=== PATIENT | female | born 1975 | race Caucasian/White ===

== ENCOUNTER 2019-06-12 12:35 | Emergency (ER) | payer OTHER ==
--- OUTSIDE RECORDS SUMMARY | 2019-06-12 12:36 | XMS REPORT ---
:1975 Author Organization [facility] t Address [address] [place] [address] Dr. Maguire [address] [place] [id number] Care Team Providers Name Role Phone Unavailable Unavailable Unavailable Problems This patient has no known problems. Allergies, Adverse Reactions, Alerts This patient has no known allergies or adverse reactions. Medications This patient has no known medications.
--- NOTE | 2019-06-12 13:39 | RAD REPORT ---
EXAM DESCRIPTION: RAD - Foot Right 3 View - 06/12/2019 1:32 pm CLINICAL HISTORY: Pain;Smash injury, blunt force trauma 2 days earlier COMPARISON: No comparisons FINDINGS: An oblique fracture is present through the midshaft fourth proximal phalanx. No significan t distraction or angulation deformity. Two punctate densities are present in the plantar surface soft tissues medial to the fifth proximal phalanx. These are distant from the fracture. These may be skin contaminant. No other fracture changes seen. No other acute bone or joint finding. No air in the soft tissues. IMPRESSION: Nondisplaced, nonangulated fracture involving the right fourth proximal phalanx.
--- NOTE | 2019-06-12 14:18 | EDPHYS ---
Physician Documentation [facility] Name: Zuleika Ho Age: 43 yrs Sex: Female : 1975 Arrival Date: 06/12/2019 Time: 12:37 Bed 23 Private MD: ED Physician Kirby Mann HPI: 06/11 14:19 This 43 yrs old Female presents to ER via Ambulatory with complaints of Foot jr8 Injury, Foot Pain. 14:19 The patient presents with decreased range of motion, pain, swelling, tenderness. The jr8 complaints affect the dorsum of right foot. Context: The problem was sustained at home, resulted from a direct blow, from a heavy object. Onset: The symptoms/episode began/occurred acutely, 2 day(s) ago. Modifying factors: The symptoms are alleviated by nothing. the symptoms are aggravated by movement, weight bearing. Associated signs and symptoms: The patient has no apparent associated signs or symptoms. Severity of symptoms: At their worst the symptoms were moderate, in the emergency department the symptoms are unchanged. The patient has not experienced similar symptoms in the past. The patient has not recently seen a physician. Patient stated that 2 days ago hit right 4th digit on side board and accidently again on paddle board. Stated that she has had swelling and pain with limited ROM since incident. Could not take the pain any longer . 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 - Social history:: Smoking status: . ROS: 14:19 Eyes: Negative for injury, pain, redness, and discharge, ENT: Negative for injury, jr8 pain, and discharge, Neck: Negative for injury, pain, and swelling, Cardiovascular: Negative for chest pain, palpitations, and edema, Respiratory: Negative for shortness of breath, cough, wheezing, and pleuritic chest pain, Abdomen/GI: Negative for abdominal pain, nausea, vomiting, diarrhea, and constipation, Back: Negative for injury and pain, Skin: Negative for injury, rash, and discoloration, Neuro: Negative for headache, weakness, numbness, tingling, and seizure. 14:19 MS/extremity: Positive for decreased range of motion, pain, swelling, tenderness, of the dorsum of right foot. Exam: 14:19 Constitutional: This is a well developed, well nourished patient who is awake, alert, jr8 and in no acute distress. Cardiovascular: Regular rate and rhythm with a normal S1 and S2. No gallops, murmurs, or rubs. Normal PMI, no JVD. No pulse deficits. Respiratory: Lungs have equal breath sounds bilaterally, clear to auscultation and percussion. No rales, rhonchi or wheezes noted. No increased work of breathing, no retractions or nasal flaring. Skin: Warm, dry with normal turgor. Normal color with no rashes, no lesions, and no evidence of cellulitis. Neuro: Awake and alert, GCS 15, oriented to person, place, time, and situation. Cranial nerves II-XII grossly intact. Motor strength 5/5 in all extremities. Sensory grossly intact. Cerebellar exam normal. Normal gait. 14:19 Musculoskeletal/extremity: Extremities: grossly normal except: noted in the right foot: Patient has swelling to dorsum of foot with bruising. Pain to 4th digit, ROM: limited active range of motion, limited passive range of motion, limited active range of motion due to pain, limited passive range of motion due to pain, Circulation is intact in all extremities. Sensation intact. Vital Signs: 12:51 BP 109 / 72; Pulse 87; Resp 16; Temp 98.0; Pulse Ox 99% on R/A; Weight 54.43 kg; Height iw 5 ft. 3 in. (160.02 cm); Pain 8/10; 14:12 BP 111 / 69; Pulse 82; Resp 16 S; Pulse Ox 100% on R/A; ca1 12:51 Body Mass Index 21.26 (54.43 kg, 160.02 cm) iw Procedures: 14:16 Splinting: Splint applied to right foot using orthopedic shoe. applied by nurse. jr8 Examined by me, post splint application: neurovascular intact, 2+ distal pulses palpable, brisk capillary refill noted, Patient tolerated well. MDM: 14:03 Patient medically screened. jr8 14:16 Data reviewed: vital signs, nurses notes, radiologic studies, plain films. Data jr8 interpreted: Pulse oximetry: on room air is 100 %. Interpretation: normal. Counseling: I had a detailed discussion with the patient and/or guardian regarding: the historical points, exam findings, and any diagnostic results supporting the discharge/admit diagnosis, radiology results, the need for outpatient follow up, a orthopedic surgeon, to return to the emergency department if symptoms worsen or persist or if there are any questions or concerns that arise at home. 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 Low likelihood of abuse. Safe to prescribe jr8 Tylenol #3. 06/11 12:54 Order name: Foot Right 3 View XRAY; Complete Time: 14:06 iw 06/11 14:16 Order name: Orthopedic shoe; Complete Time: 14:23 jr8 06/11 14:23 Order name: Crutch Training; Complete Time: 14:23 ca1 Administered Medications: No medications were administered Disposition: 15:56 Co-signature as Attending Physician, Kirby Mann MD I agree with the assessment and kdr plan of care. Disposition: 06/12/19 14:17 Discharged to Home. Impression: Displaced fracture of proximal phalanx of right lesser toe(s). - Condition is Stable. - Discharge Instructions: Toe Fracture. - Prescriptions for Tylenol- Codeine #3 300-30 mg Oral Tablet - take 2 tablets by ORAL route every 6 hours As needed; 20 tablet. - Medication Reconciliation Form, Thank You Letter, Antibiotic Education, Prescription Opioid Use form. - Follow up: Sharif Neri DPM; When: 1 - 2 days; Reason: Recheck today's complaints, Continuance of care, Re-evaluation by your physician. - Problem is new. - Symptoms have improved. Signatures: Dispatcher [employer] EDMS Kirby Mann MD MD kdr Elena Brandon RN RN iw Roszak, Josh, PA PA jr8 Sara Rodriguez RN RN ca1 Corrections: (The following items were deleted from the chart) 14:28 14:17 06/12/2019 14:17 Discharged to Home. Impression: Displaced fracture of proximal ca1 phalanx of right lesser toe(s). Condition is Stable. Forms are Medication Reconciliation Form, Thank You Letter, Antibiotic Education, Prescription Opioid Use. Follow up: Dr. Sharif Selbst; When: 1 - 2 days; Reason: Recheck today's complaints, Continuance of care, Re-evaluation by your physician. Problem is new. Symptoms have improved. jr8
--- NOTE | 2019-06-12 14:18 | ER ---
Nurse's Notes [facility] Name: Zuleika Ho Age: 43 yrs Sex: Female : 1975 Arrival Date: 06/12/2019 Time: 12:37 Bed 23 Private MD: Diagnosis: Displaced fracture of proximal phalanx of right lesser toe(s) Presentation: 06/11 12:51 Chief complaint: Patient states: table fell on right foot, and reinjured it X 2 days iw ago, has pain through toes and top of foot. Coronavirus screen: Proceed with normal triage. Patient denies a cough. Patient denies shortness of breath or difficulty breathing. Patient denies measured and/or subjective temperature greater than 100.4F prior to today's visit. Patient denies travel on a cruise ship or to a country the [facility] currently lists as an affected area. Patient denies contact with known and/or suspected case of COVID-19. Ebola Screen: Patient negative for fever greater than or equal to 101.5 degrees Fahrenheit, and additional compatible Ebola Virus Disease symptoms Patient denies exposure to infectious person. Patient denies travel to an Ebola-affected area in the 21 days before illness onset. No symptoms or risks identified at this time. Initial Sepsis Screen: Does the patient meet any 2 criteria? No. Patient's initial sepsis screen is negative. Does the patient have a suspected source of infection? No. Patient's initial sepsis screen is negative. Risk Assessment: Do you want to hurt yourself or someone else? Patient reports no desire to harm self or others. Onset of symptoms was June 10, 2019. 12:51 Method Of Arrival: Ambulatory iw 12:51 Acuity: JORGE LUIS 4 iw Triage Assessment: 14:23 Injury Description:. 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 - Social history:: Smoking status: . Screenin:11 Abuse screen: Denies threats or abuse. Denies injuries from another. Nutritional ca1 screening: No deficits noted. Tuberculosis screening: No symptoms or risk factors identified. Fall Risk Fall in past 12 months (25 points). Assessment: 14:11 General: Appears in no apparent distress. comfortable, Behavior is calm, cooperative, ca1 appropriate for age. Pain: Complains of pain in right foot. Neuro: Level of Consciousness is awake, alert, obeys commands, Oriented to person, place, time, situation. Derm: Skin is intact, is healthy with good turgor, Skin is pink, warm \T\ dry. Musculoskeletal: Circulation, motion, and sensation intact. Capillary refill < 3 seconds, Range of motion: intact in all extremities. Vital Signs: 12:51 BP 109 / 72; Pulse 87; Resp 16; Temp 98.0; Pulse Ox 99% on R/A; Weight 54.43 kg; Height iw 5 ft. 3 in. (160.02 cm); Pain 8/10; 14:12 BP 111 / 69; Pulse 82; Resp 16 S; Pulse Ox 100% on R/A; ca1 12:51 Body Mass Index 21.26 (54.43 kg, 160.02 cm) iw ED Course: 12:37 Patient arrived in ED. ag5 12:53 Triage completed. iw 13:24 Foot Right 3 View XRAY In Process Unspecified. EDMS 14:03 Lonnie Hammer PA is PHCP. jr8 14:03 Kirby Mnan MD is Attending Physician. jr8 14:11 Sara Rodriguez, ALYX is Primary Nurse. ca1 14:11 Patient has correct armband on for positive identification. Bed in low position. Call ca1 light in reach. Side rails up X 1. Pulse ox on. NIBP on. 14:11 Arm band placed on. ca1 14:17 Sharif Neri DPM is Referral Physician. jr8 14:23 No provider procedures requiring assistance completed. Patient did not have IV access ca1 during this emergency room visit. Crutch training done. Ortho shoe applied to right foot. Administered Medications: No medications were administered Outcome: 14:17 Discharge ordered by . jr8 14:24 Discharged to home via wheelchair, with crutches. ca1 14:24 Condition: stable 14:24 Discharge instructions given to patient, Instructed on discharge instructions, follow up and referral plans. no drinking with medication, no driving heavy equipment, medication usage, crutch walking, Demonstrated understanding of instructions, follow-up care, medications, crutch walking, Prescriptions given X 1. 14:28 Patient left the ED. ca1 Signatures: Dispatcher [employer] Elena Garay RN RN iw Roszak, Josh, PA PA jr8 Sara Rodriguez RN RN ca1 Arley Hidalgo ag5
[2019-06-13 02:45] VITALS: TEMP 98
[2019-06-13 02:47] VITALS: BP 111/69; O2SAT 100
== END 2019-06-12 14:28 | disposition home or self-care (01) ==
LOC: ER 12:35
DX: S92.511A Displaced fracture of proximal phalanx of right lesser toe(s), initial encounter for closed fracture (principal); W22.8XXA Striking against or struck by other objects, initial encounter; Y93.9 Activity, unspecified; Y92.009 Unspecified place in unspecified non-institutional (private) residence as the place of occurrence of the external cause; Z98.82 Breast implant status
CPT/HCPCS: 99284